=== PATIENT | male | born 1950 | race Caucasian/White ===

== ENCOUNTER → 2016-12-08 | Outpatient (CLI) | payer OTHER ==
[~2016-12-08] MED LIST: PERCOCET 5-3251 EACH PO
== END ==
LOC: RAD 15:51
DX: R05 Cough (principal)
CPT/HCPCS: 71020

== ENCOUNTER → 2020-09-18 | Outpatient (CLI) | payer OTHER ==
[~2020-09-18] MED LIST changes: +ALFUZOSIN HCL E10 MG PO; +AMLODIPINE BESYL5 MG PO; +ASPIRIN EC81 MG PO; +FLAGYL500 MG PO; +FLOMAX 0.4 MG0.4 MG PO; +ISOSORBIDE MONO30 MG PO; +LEVOFLOXACIN500 MG PO; +LEVOTHYROXINE25 MCG PO; +NITROSTAT0.4 MG SL; +NORCO 7.5-3251 EACH PO; +PANTOPRAZOLE SO40 MG PO; +POTASSIUM CITR15 MEQ PO; +PROTONIX 40 MG40 M1 PO; +TAMSULOSIN HCL0.4 MG PO; +VIT D3 PO; +WELCHOL 625 MG625 MG PO; +WELCHOL625 MG PO; +ZOFRAN ODT8 MG PO
== END ==
LOC: KOH-I 15:04
DX: M25.561 Pain in right knee (principal); M25.461 Effusion, right knee
CPT/HCPCS: 73562

== ENCOUNTER → 2021-06-10 | Outpatient (CLI) | payer OTHER | LOC: CT 11:46 | DX: R10.9 Unspecified abdominal pain (principal); R63.0 Anorexia; R63.4 Abnormal weight loss; R11.0 Nausea; N28.9 Disorder of kidney and ureter, unspecified | CPT/HCPCS: Q9967 ==

== ENCOUNTER → 2022-01-14 | Outpatient (CLI) | payer MEDICARE | LOC: CT 08:35 | DX: N28.89 Other specified disorders of kidney and ureter (principal); N20.0 Calculus of kidney; I25.10 Atherosclerotic heart disease of native coronary artery without angina pectoris; R06.02 Shortness of breath; I70.0 Atherosclerosis of aorta; I08.3 Combined rheumatic disorders of mitral, aortic and tricuspid valves; I27.20 Pulmonary hypertension, unspecified; Z87.898 Personal history of other specified conditions | CPT/HCPCS: ECHO; 36415; 74170; 82565; 84520; 93306; Q9967 ==

== ENCOUNTER → 2022-04-25 | Outpatient (CLI) | payer OTHER | LOC: LAB 11:20 | DX: E03.9 Hypothyroidism, unspecified (principal) | CPT/HCPCS: 84439; 84443; 84481 ==